=== PATIENT | female | born 1940 | race Caucasian/White ===

== ENCOUNTER → 2017-02-24 | Outpatient (REF) | LOC: ZLAB.WCH 18:17 | DX: Z01.89 Encounter for other specified special examinations (principal) ==

== ENCOUNTER → 2018-09-19 | Outpatient (CLI) | payer MEDICARE | LOC: SUN.DIA 09:55 | DX: E11.40 Type 2 diabetes mellitus with diabetic neuropathy, unspecified (principal); E66.9 Obesity, unspecified | CPT/HCPCS: G0108 ==

== ENCOUNTER → 2018-09-27 | Outpatient (CLI) | payer MEDICARE | LOC: SUN.DIA 08:34 | DX: E11.40 Type 2 diabetes mellitus with diabetic neuropathy, unspecified (principal); E66.9 Obesity, unspecified ==

== ENCOUNTER → 2018-10-17 | Outpatient (CLI) | payer MEDICARE | LOC: SUN.DIA 13:57 | DX: E11.40 Type 2 diabetes mellitus with diabetic neuropathy, unspecified (principal); E66.9 Obesity, unspecified | CPT/HCPCS: G0108 ==

== ENCOUNTER 2018-12-12 12:18 | Observation (INO) | payer MEDICARE ==
[~2018-12-12] VITALS: Ht 182.9 cm; Wt 89.8 kg
[2018-12-12 12:36] LABS: HEMATOCRIT 40.7 % (37.0-47.0); HEMOGLOBIN 13.6 g/dl (12.5-16.0); MEAN CELL VOLUME 87 fl (80.0-100.0); MEAN CORPUSCULAR HEMOGLOBIN 29 pg (27.0-31.0); MEAN CORPUSCULAR HGB CONC 33 g/dl (33.0-37.0); MEAN PLATELET VOLUME 10.1 fl (7.4-10.4); PLATELET COUNT 353 K/mm3 (130-400); RED BLOOD COUNT 4.67 M/mm3 (4.10-5.30); REDCELL DISTRIBUTION WIDTH-CV 13.2 % (11.5-14.5)
[2018-12-12 12:50] LABS: ALANINE AMINOTRANSFERASE 30 U/L (9-52); ALBUMIN 4.5 gm/dL (3.5-5.0); ALKALINE PHOSPHATASE 103 U/L (50-136); ANION GAP 12 mmol/L (7-16); AST,SGOT 22 U/L (15-37); BILIRUBIN,TOTAL 0.6 mg/dL (0.0-1.0); BLOOD UREA NITROGEN 17 mg/dL (7-17); CALCIUM 9.9 mg/dL (8.4-10.2); CARBON DIOXIDE 22 mmol/L (22-30); CHLORIDE 102 mmol/L (98-107); CREATININE, serum 0.66 mg/dL (0.52-1.25); GLUCOSE 263 mg/dL (74-106); LIPASE 207 U/L (23-300); POTASSIUM 3.3 mmol/L (3.4-5.0); SODIUM 137 mmol/L (137-145); TOTAL PROTEIN 7.6 gm/dL (6.4-8.2)
[2018-12-12 12:57] LABS: EOSINOPHIL 3 % (0-4); LYMPHOCYTE 36 % (20.0-51.0); NEUTROPHILS 58 % (42.0-75.2); NUCLEATED RED BLOOD CELL 2 (0-6); PLATELET ESTIMATE NORMAL (NORMAL)
[2018-12-12 13:03] LABS: TROPONIN-I < 0.012 ng/mL (0.000-0.035)
[2018-12-12 13:05] LABS: PROLACTIN 99.3 ng/mL (3.0-18.6)
[2018-12-12] MEDS ORDERED: GLUCOPHAGE XR500 M1 PO (13:07)
[2018-12-12] MEDS ORDERED: HYZAAR 50-12.1 UDTAB PO (13:07)
[2018-12-12 13:39] LABS: INR 1.1 (0.8-3.0); PROTHROMBIN TIME 12.1 SECONDS (9.7-12.8)
--- NOTE | 2018-12-12 16:14 | NUR ---
Pt arrived to room 314 via with ED staff. Pt able to transfer from the WC to the floor bed without difficutly. Pt oriented to room and call light system. Will complete assessment. Call light within reach, will continue to monitor.
[2018-12-12 16:26] LABS: COLLECTION METHOD CLEAN CATCH
[2018-12-12] MEDS ORDERED: TART CHERRY EXTRACT PO (16:35)
[2018-12-12] MEDS ORDERED: [UNRECOGNIZED DRUG - OTHER] PO (16:36)
[2018-12-12 16:37] LABS: GRANULAR CAST >12 /lpf; HYALINE CAST >12 /lpf; MUCOUS Present /lpf; PH 5 (5-8); SQUAMOUS EPITHELIAL None Seen /hpf; URINE APPEARANCE Hazy; URINE BACTERIA None Seen /hpf; URINE BILIRUBIN Negative (NEGATIVE); URINE BLOOD Negative (NEGATIVE); URINE COLOR Yellow; URINE GLUCOSE 2+ (NEGATIVE); URINE KETONE Trace (NEGATIVE); URINE LEUKOCYTE ESTERASE Negative (NEGATIVE); URINE NITRATE Negative (NEGATIVE); URINE PROTEIN(semi-quant) Negative (NEGATIVE); URINE RBC 0-2 /hpf; URINE UROBILINOGEN Negative (NEGATIVE)
[2018-12-12] MEDS ORDERED: GLUCOSAMINE MSM1 TAB PO (16:37)
[2018-12-12] MEDS ORDERED: VITAMIN D31000 I1 PO (16:37)
[2018-12-12] MEDS ORDERED: MUSHROOM COMPLEX PO (16:39)
[2018-12-12] MEDS ORDERED: GRAPE SEED EXTR1 CAP PO (16:39)
[2018-12-12] MEDS ORDERED: EPA FISH OIL1 SGL PO (16:40)
[2018-12-12] MEDS ORDERED: WOMEN'S DAILY1 TAB PO (16:41)
[2018-12-12] MEDS ORDERED: BLACK SEED OIL PO (16:41)
[2018-12-12] MEDS ORDERED: VITAMIN E 400 U4001 PO (16:42)
[2018-12-12] MEDS ORDERED: [UNRECOGNIZED DRUG - OTHER] PO (16:43)
[2018-12-12] MEDS ORDERED: CHLORELLA PO (16:43)
[2018-12-12] MEDS ORDERED: MAGNESIUM500 MG PO (16:44)
[2018-12-12] MEDS ORDERED: CURCUMIN95% PO (16:45)
[2018-12-12] MEDS ORDERED: L-CARNITINE500 M1 PO (16:47)
[2018-12-12] MEDS ORDERED: HYZAAR 25 MG-101 TAB PO (16:48)
[2018-12-12] MEDS ORDERED: VITAMINC1000TA PO (16:50)
[2018-12-12] MEDS ORDERED: [UNRECOGNIZED DRUG - OTHER] PO (16:51)
[2018-12-12] MEDS ORDERED: MILK THISTLE150 MG PO (16:52)
[2018-12-12] MEDS ORDERED: [UNRECOGNIZED DRUG - OTHER] PO (16:54)
[2018-12-12] MEDS ORDERED: ORIGANUM OIL 1 M1 ML (16:55)
[2018-12-12] MEDS ORDERED: TRULICITY0.75 MG/0. SQ (16:56)
[2018-12-12] MEDS ORDERED: OMEGA-31 SGL PO (17:01)
[2018-12-12] MEDS ORDERED: PHARMASSURE GA500 MG PO (17:02)
[2018-12-12] MEDS ORDERED: LUTEIN20 M1 PO (17:02)
[2018-12-12] MEDS ORDERED: B COMPLEX #11 TAB (17:03)
[2018-12-12 17:13] VITALS: BP 125/65; PULSE 99; TEMP 97.8
[2018-12-12 17:15] VITALS: BP 125/65; PULSE 99; TEMP 97.8
[2018-12-12 17:17] VITALS: BP 146/80
[2018-12-12 17:19] VITALS: BP 150/55
[2018-12-12 20:03] VITALS: BP 143/72; PULSE 111; TEMP 98.1
--- NOTE | 2018-12-12 22:00 | NUR ---
Initial shift assessment done-- denies pain, neuros intact, no deficits-- wants to walk around on her own- steady on feet- instructed to call for assistance to the bathroom - states understanding, INT to left hand patent, Tele on, blood sugar 337-states will not take insulin,,wants her glucophage but that is on hold-- talked with pt about insulin,,pt worried she will then have to go home with insulin-- encouragement given,, will go ahead and take insulin just for tonight-
[2018-12-12 23:33] VITALS: BP 121/69; BP 154/79; PULSE 90; TEMP 98.3
[2018-12-13 03:45] VITALS: BP 133/69; PULSE 84; TEMP 97.4
--- NOTE | 2018-12-13 05:38 | NUR ---
Quiet night-- no seizure activity- pt states she is going home, did check a blood sugar at 0200 per pts requests -[id number]-,
[2018-12-13 06:09] LABS: BASO # 0.1 (0.0-0.2); BASO % 0.4 % (0.0-2.0); EOS # 0.5 (0.0-0.7); EOS % 3.4 % (0-4.0); GRAN % 57.2 % (42.2-75.2); HEMOGLOBIN 12.8 g/dl (12.5-16.0); LYMPH # 4.4 (1.2-3.4); LYMPH % 31.5 % (20.0-51.0); MEAN CELL VOLUME 88 fl (80.0-100.0); MEAN CORPUSCULAR HEMOGLOBIN 29 pg (27.0-31.0); MEAN CORPUSCULAR HGB CONC 33 g/dl (33.0-37.0); MEAN PLATELET VOLUME 10.4 fl (7.4-10.4); MONO % 7.1 % (1.7-9.3); PLATELET COUNT 320 K/mm3 (130-400); RED BLOOD COUNT 4.42 M/mm3 (4.10-5.30); REDCELL DISTRIBUTION WIDTH-CV 13.1 % (11.5-14.5)
[2018-12-13 06:21] LABS: CREATININE, serum 0.62 mg/dL (0.52-1.25); MAGNESIUM 1.8 mg/dL (1.6-2.3); POTASSIUM 4.6 mmol/L (3.4-5.0)
[2018-12-13 08:00] VITALS: BP 118/82; PULSE 76; TEMP 97.7
--- NOTE | 2018-12-13 08:27 | NUR ---
Patient alert and oriented, answers questions appropriately. See assessment. No c/o light headedness, vertigo or flushing at this time. Wishes to go home. No other c/o at this time.
[2018-12-13 11:20] VITALS: BP 141/79; PULSE 85; TEMP 97.6
--- NOTE | 2018-12-13 12:00 | NUR ---
Patient to nurses station upset that MRI that was tentatively scheduled for 1100 this a.m has been delayed r/t other patients needing MRIs as well. Patient became belligerent, stating "this place is ridiculous, I'm just going to check myself out of here". Explained to patient that this was her choice if she chooses to leave and MRI will be performed as soon as possible. Patient ambulates back to room visibly upset.
--- NOTE | 2018-12-13 12:35 | NUR ---
Dr Rinaldi here to see patient. Patient agrees to await MRI and EEG scheduled for 1600.
--- NOTE | 2018-12-13 13:00 | NUR ---
Entered room to administer patients losartan and ativan. Patient and family agitated that losartan has not been administered yet. Explained to patient that Doctor had to order, pharmacy had to verify and then it would be given. Patient and family curses facility and the "amount of time it takes to get anything done around here". Explained to patient that medication is being administered in adequate time r/t order time. Patient and family continue to curse about facility. durability technician here at this time and takes patient to MRI.
--- NOTE | 2018-12-13 13:40 | NUR ---
Patient returns from MRI. Ambulates to nurses desk and requests INT be removed so she can go home. Explained to patient that EEG is yet to be performed and is scheduled for 1600. Patient states "scheduled for four means done at [address]". Also states "I'm not staying around for this, I'm leaving". Explained need for EEG. Patient states "I'll just come back some other time when I want to and have it done". Dr Rinaldi notified. Upon re-entering patient room, patient getting dressed. Explained to patient that if she chooses to leave, she would be leaving AMA. Patient states "well, I can't leave now, my family all left". Asked that patient let this nurse know of her decision to stay or leave.
--- NOTE | 2018-12-13 16:35 | NUR ---
SW student attempted to see patient but was unable to because the patient was in the middle of testing. SW will attempt again tomorrow.
--- NOTE | 2018-12-13 18:44 | NUR ---
Discharge instructions reviewed with patient and family, verbalized understanding. Discharged ambulatory to auto/home with family at 1844.
== END 2018-12-13 18:44 | disposition home or self-care (01) ==
LOC: COL.ER 12:18 → MEDICAL 14:06
PROVIDERS: Emergency Medicine; Physician Assistant; ADMIT Family Medicine
DX: R55 Syncope and collapse (principal); E87.6 Hypokalemia; E11.9 Type 2 diabetes mellitus without complications; I10 Essential (primary) hypertension; Z79.84 Long term (current) use of oral hypoglycemic drugs; Z90.710 Acquired absence of both cervix and uterus; Z90.49 Acquired absence of other specified parts of digestive tract; Z80.0 Family history of malignant neoplasm of digestive organs; Z79.4 Long term (current) use of insulin
CPT/HCPCS: 99239; A9585; G0378; J1650; J1815; J7030

== ENCOUNTER 2024-08-22 09:10 | Outpatient (RCR) | payer MEDICARE, OTHER ==
[~2024-08-22 09:10] MED LIST: B COMPLEX #11 TAB; BLACK SEED OIL PO; CHLORELLA PO; CURCUMIN95% PO; EPA FISH OIL1 SGL PO; GLUCOPHAGE XR500 M1 PO; GLUCOSAMINE MSM1 TAB PO; GRAPE SEED EXTR1 CAP PO; HYZAAR 25 MG-101 TAB PO; HYZAAR 50-12.1 UDTAB PO; L-CARNITINE500 M1 PO; LUTEIN20 M1 PO; MAGNESIUM500 MG PO; MILK THISTLE150 MG PO; MUSHROOM COMPLEX PO; OMEGA-31 SGL PO; ORIGANUM OIL 1 M1 ML; PHARMASSURE GA500 MG PO; TART CHERRY EXTRACT PO; TRULICITY0.75 MG/0. SQ; VITAMIN D31000 I1 PO; VITAMIN E 400 U4001 PO; VITAMINC1000TA PO; WOMEN'S DAILY1 TAB PO; [UNRECOGNIZED DRUG - OTHER] PO; [UNRECOGNIZED DRUG - OTHER] PO; [UNRECOGNIZED DRUG - OTHER] PO; [UNRECOGNIZED DRUG - OTHER] PO
== END 2024-09-08 | disposition home or self-care (01) ==
LOC: MKS.ESL.PT
DX: G60.3 Idiopathic progressive neuropathy (principal)